=== PATIENT | male | born 1950 | race Caucasian/White ===

== ENCOUNTER 2023-04-07 09:25 | Outpatient (OUT) | payer MEDICARE, SELFPAY ==
--- NOTE | 2023-04-07 | XR_ITS ---
The [address] [address] Patient Name: AMANDA ECHOLS MRN: [id number] date: 1950 Sex: M Assigned Patient Location: Current Patient Location: Accession/Order Number: [id number] Exam Date: 04/07/2023 09:40 Report Date: 04/07/2023 10:22 At the request of: JASVIR SIERRA Procedure: XR ankle RT min 3V PROCEDURE: XR ankle RT min 3V, XR foot RT min 3V COMPARISON: None. HISTORY: RIGHT ANKLE PAIN FINDINGS: BONES:Partial pes planus with plantar rotation of the talus. Mild to moderate degenerative changes with joint space narrowing and marginal osteophyte formation most significant in the midfoot. Sclerosis of the medial navicular likely represents a remote injury. No new fracture or dislocation SOFT TISSUES:Negative. No visible soft tissue swelling. EFFUSION:None visible. OTHER: Negative. XR/XR ankle RT min 3V IMPRESSION: Pes planus Moderate degenerative changes Electronically authenticated by: HAILE LEVI Date: 04/07/2023 10:22
--- NOTE | 2023-04-07 | XR_ITS ---
The [address] [address] Patient Name: AMANDA ECHOLS MRN: [id number] date: 1950 Sex: M Assigned Patient Location: Current Patient Location: Accession/Order Number: [id number] Exam Date: 04/07/2023 09:38 Report Date: 04/07/2023 10:22 At the request of: JASVIR SIERRA Procedure: XR foot RT min 3V PROCEDURE: XR ankle RT min 3V, XR foot RT min 3V COMPARISON: None. HISTORY: RIGHT ANKLE PAIN FINDINGS: BONES:Partial pes planus with plantar rotation of the talus. Mild to moderate degenerative changes with joint space narrowing and marginal osteophyte formation most significant in the midfoot. Sclerosis of the medial navicular likely represents a remote injury. No new fracture or dislocation SOFT TISSUES:Negative. No visible soft tissue swelling. EFFUSION:None visible. OTHER: Negative. XR/XR foot RT min 3V IMPRESSION: Pes planus Moderate degenerative changes Electronically authenticated by: HAILE LEVI Date: 04/07/2023 10:22
== END 2023-04-07 09:26 | disposition home or self-care (01) ==
LOC: EC 09:26
PROVIDERS: Visit Provider Podiatrist Foot & Ankle Surgery
DX: M79.671 Pain in right foot (principal); M25.571 Pain in right ankle and joints of right foot
CPT/HCPCS: 73610; 73630